=== PATIENT | female | born 1990 | race Caucasian/White ===

== ENCOUNTER → 2017-06-13 11:52 | Outpatient (CLI) | payer OTHER, SELFPAY ==
[2017-06-15 06:29] LABS: FSH 3.2 mIU/mL (.); LH 4.5 mIU/mL (.)
== END ==
PROVIDERS: Family Provider Nurse Practitioner Obstetrics & Gynecology; PCP Nurse Practitioner Obstetrics & Gynecology; Visit Provider Nurse Practitioner Obstetrics & Gynecology
DX: Z12.31 Encounter for screening mammogram for malignant neoplasm of breast (principal)
CPT/HCPCS: 36415; 83001; 83002; 84146; 84443

== ENCOUNTER 2017-07-10 18:10 | Emergency (ER) | payer BC, SELFPAY ==
[2017-07-10 18:34] VITALS: BP 116/73; PULSE 94; RESP 20; TEMP 36.9; O2SAT 98; BMI 29.6
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
[2017-07-10 19:51] LABS: UTC Pregnancy Test, Urine Negative (Negative)
[2017-07-10 20:10] LABS: UTC Pregnancy Test, Urine Negative (Negative)
[2017-07-10 20:40] VITALS: BP 110/85; PULSE 85; RESP 18; TEMP 36.8; O2SAT 100
== END 2017-07-10 20:32 | disposition home or self-care (01) ==
PROVIDERS: Emergency Provider Nurse Practitioner Family; Family Provider Nurse Practitioner Obstetrics & Gynecology
DX: K08.89 Other specified disorders of teeth and supporting structures (principal); R11.0 Nausea; N92.6 Irregular menstruation, unspecified
CPT/HCPCS: 81025; 99201

== ENCOUNTER → 2018-05-20 11:30 | Outpatient (CLI) | payer BC, MEDICAID, SELFPAY ==
--- NOTE | 2018-05-20 11:36 | US_ITS ---
US OB transvaginal HISTORY: ITS.REASON: OB T/V US -DATES before 12 wks ORDERING PHYSICIAN: Jamaal Olivas MD PATIENT AGE: 27 years COMPARISON: None FINDINGS: An intrauterine gestational sac is present with a pole with a crown-rump length of 1.65cm correlating to gestational age of 8w1d. heart tones are present with an FHR of 167 bpm's. Yolk sac is noted. The amnion and chorion have not yet fused. Adnexa: Small left corpus luteum cyst 1 cm. IMPRESSION: Live intrauterine gestation at 8 weeks 1 days as described above. Estimated due date by Ultrasound is 12/29/2018
[2018-05-20 12:38] LABS: Basophils % 0.3 % (0.1-2.0); Eosinophils # 0.3 K/mm3 (0.0-0.4); Eosinophils % 2.4 % (0.1-12.0); Hematocrit 40.9 % (37.0-47.0); Hemoglobin 13.3 g/dL (12.2-16.2); Lymphocytes # 2.1 K/mm3 (0.7-4.5); Lymphocytes % 18.9 % (10-50); Mean Corpuscular HGB Conc 32.5 g/dL (31.8-35.4); Mean Corpuscular Hemoglobin 31.2 pg (27.0-31.2); Mean Corpuscular Volume 95.9 fl (81-99); Mean Platelet Volume 7.7 fl (7.4-10.4); Monocytes # 0.3 K/mm3 (0.1-1.0); Neutrophils # 8.5 K/mm3 (1.8-7.8); Neutrophils % 75.4 % (37.0-80.0); Platelet Count 325 K/mm3 (142-424); Red Blood Count 4.27 M/mm3 (4.20-5.40); White Blood Count 11.2 K/mm3 (4.8-10.8)
[2018-05-21 07:21] LABS: HIV Screen 4th Generation wRfx Non Reactive (Non Reactive)
[2018-05-21 09:48] LABS: Hepatitis B Surface Antigen Negative (Negative); Hepatitis C Antibody <0.1 s/co ratio (0.0-0.9); Rapid Plasma Reagin Ab Titer Non Reactive (NonRea<1:1); Rubella Antibodies, IgG 1.31 index (Immune >0.99)
== END ==
PROVIDERS: PCP Family Medicine; Visit Provider Nurse Practitioner Obstetrics & Gynecology
DX: O26.841 Uterine size-date discrepancy, first trimester (principal); Z34.90 Encounter for supervision of normal pregnancy, unspecified, unspecified trimester
CPT/HCPCS: 36415; 76817; 85025; 86592; 86703; 86762; 86850; 87340; 87380; G0432

== ENCOUNTER → 2018-08-12 12:38 | Outpatient (CLI) | payer BC, MEDICAID, SELFPAY ==
--- NOTE | 2018-08-12 12:41 | US_ITS ---
US OB /maternal detail: INDICATION: ITS.REASON: US OB Complete ORDERING PHYSICIAN: Jamaal Olivas MD PATIENT AGE: 28 years TECHNIQUE: ultrasound transabdominal scanning. COMPARISON: No previous relevant studies. FINDINGS: Single viable intrauterine gestation. Cephalic position. Placenta: Posterior placenta grade 1. There is average amount fluid. The cervix appears satisfactory. Closed and measuring 3 cm in length. Complete survey performed and was unremarkable on the submitted images as in PACS. No discrete anomalies identified on survey imaging by technologist. Active fetus. Three-vessel cord with satisfactory umbilical cord insertion. 4- chamber heart noted. Survey of brain & ventricles unremarkable. Face and neck survey unremarkable. Diaphragm and chest views unremarkable. Abdomen: Both kidneys noted and unremarkable. Stomach noted and satisfactory. Spine: Survey of the spine satisfactory with no anomalies identified nor imaged. Both arms and legs noted. Amniotic Fluid: Adequate. Maternal adnexa: No significant findings. Measurements: Average ultrasound age 20 weeks 3 days. Gestational Age 20 weeks 1 day. Estimated due date by ultrasound age 912/27/2018. Estimated weight 366 grams. BPD = 20 weeks 2 days OFD = 20 weeks 3 days HC = 19 weeks 5 days AC = 20 weeks 5 days FL = 21 weeks 0 days Growth Percentile= 72% Heart Rate = 140 BPM Cerebellum = 20 weeks 0 days Humerus = 20 weeks 1 day HC/AC is 1.10. CI is 79%. FL/BPD is 74%. FL/AC is 23%. IMPRESSION: There is a single live fetus which is in cephalic presentation with average ultrasound age of 20 weeks and 3 days. No obvious anomalies. Please see above for details
== END ==
PROVIDERS: PCP Nurse Practitioner Obstetrics & Gynecology; Visit Provider Nurse Practitioner Obstetrics & Gynecology
DX: Z36.0 Encounter for antenatal screening for chromosomal anomalies (principal)
CPT/HCPCS: 76811

== ENCOUNTER 2018-09-18 16:16 | Outpatient (CLI) | payer BC, MEDICAID, SELFPAY ==
[2018-09-18 16:20] VITALS: BP 110/68; PULSE 83; RESP 18; TEMP 37.2; O2SAT 96; BMI 29.2
[2018-09-18 17:37] LABS: Eosinophils # 0.2 K/mm3 (0.0-0.4); Eosinophils % 1.6 % (0.1-12.0); Hematocrit 35.7 % (37.0-47.0); Hemoglobin 12.6 g/dL (12.2-16.2); Lymphocytes # 1.7 K/mm3 (0.7-4.5); Lymphocytes % 14.8 % (10-50); Mean Corpuscular HGB Conc 35.2 g/dL (31.8-35.4); Mean Corpuscular Hemoglobin 32.6 pg (27.0-31.2); Mean Corpuscular Volume 92.6 fl (81-99); Mean Platelet Volume 7.2 fl (7.4-10.4); Monocytes # 0.6 K/mm3 (0.1-1.0); Monocytes % 4.8 % (1.7-9.3); Neutrophils # 9.1 K/mm3 (1.8-7.8); Neutrophils % 78.8 % (37.0-80.0); Platelet Count 325 K/mm3 (142-424); Red Blood Count 3.86 M/mm3 (4.20-5.40); Red Cell Distribution Width 13.2 % (11.5-17.5); White Blood Count 11.5 K/mm3 (4.8-10.8)
[2018-09-18 17:44] LABS: Anion Gap 13.1 mEq/L (5-15); Blood Urea Nitrogen 11 mg/dL (7-18); Calcium 8.1 mg/dL (8.5-10.1); Carbon Dioxide 23 mmol/L (21.0-32.0); Chloride 106 mmol/L (98-107); Creatinine Clearance Estimated 156 mL/min (50-200); Creatinine,Serum 0.62 mg/dL (0.55-1.02); Estimated Glomerular Filt Rate 115 ml/min (>60); GFR (African American) 140 ML/MIN (>60); Glucose 99 mg/dL (74-106); Potassium 4.1 mmoL/L (3.5-5.1); Sodium 138 mmol/L (136-145)
[2018-09-18 17:58] LABS: Microscopic, Urine URINE MICROSCOPIC (MICROSCOPIC)
[2018-09-18 18:02] LABS: Appearance,Urine CLEAR (Clear); Bilirubin,Urine Negative (Negative); Blood, Urine Negative (Negative); Color,Urine YELLOW (Yellow); Glucose,Urine (UA) Negative (Negative); Ketones,Urine Negative (Negative); Leukocyte Esterase,Urine Negative (Negative); Nitrate,Urine Negative (Negative); Protein,Urine Negative (Negative); Specific Gravity, Urine >= 1.030 (1.005-1.030); Urobilinogen,Urine 0.2 EU/dl (0.2)
[2018-09-18 18:11] LABS: Amphetamine/Metha Screen,Urine Negative ng/mL (<1000); Barbiturates Screen,Urine Negative ng/mL (<200); Benzodiazepines Screen,Urine Negative ng/mL (<200); Cannabinoid Screen,Urine Negative ng/mL (<50); Cocaine Screen,Urine Negative ng/mL (<300); Methadone Screen,Urine Negative ng/mL (<300); Opiate Screen,Urine Negative ng/mL (<300); Phencyclidine Screen,Urine Negative ng/mL (<25)
[2018-09-18 18:47] LABS: Bacteria,Urine Trace /lpf; WBC,Urine Occasional #/hpf (0-3)
== END 2018-09-18 18:25 | disposition home or self-care (01) ==
LOC: OBOUT 16:17 → OB 16:18
PROVIDERS: Visit Provider Nurse Practitioner Obstetrics & Gynecology
DX: O26.892 Other specified pregnancy related conditions, second trimester (principal); Z3A.25 25 weeks gestation of pregnancy; R42 Dizziness and giddiness
CPT/HCPCS: 59025; 80048; 80305; 81001; 85025; 96360

== ENCOUNTER → 2018-09-30 10:02 | Outpatient (CLI) | payer BC, MEDICAID, SELFPAY ==
[2018-09-30 11:20] LABS: Glucose,Fasting 81 mg/dL (60-105)
[2018-09-30 14:03] LABS: Glucose 1 Hour 163 mg/dL (74-106)
== END ==
PROVIDERS: Visit Provider Nurse Practitioner Obstetrics & Gynecology
DX: Z34.90 Encounter for supervision of normal pregnancy, unspecified, unspecified trimester (principal)
CPT/HCPCS: 36415; 82951

== ENCOUNTER → 2018-10-10 09:33 | Outpatient (CLI) | payer BC, MEDICAID, SELFPAY ==
[2018-10-10 11:18] LABS: Glucose,Fasting 80 mg/dL (60-105)
[2018-10-10 11:31] LABS: Glucose 1 Hour 204 mg/dL (74-106)
[2018-10-10 13:34] LABS: Glucose 2 Hour 171 mg/dL (74-106)
[2018-10-10 14:11] LABS: Glucose 3 Hour 140 mg/dL (74-106)
== END ==
PROVIDERS: Visit Provider Nurse Practitioner Obstetrics & Gynecology
DX: Z34.90 Encounter for supervision of normal pregnancy, unspecified, unspecified trimester (principal)
CPT/HCPCS: 36415; 82951

== ENCOUNTER 2018-11-17 11:46 | Outpatient (CLI) | payer BC, MEDICAID, SELFPAY ==
[2018-11-17 12:01] VITALS: BMI 27.1
[2018-11-17 12:25] VITALS: BP 118/73; PULSE 78; RESP 20; TEMP 36.7; O2SAT 94; BMI 28.9
[2018-11-17 12:36] LABS: Microscopic, Urine URINE MICROSCOPIC (MICROSCOPIC)
[2018-11-17 12:39] LABS: Appearance,Urine CLOUDY (Clear); Bilirubin,Urine Negative (Negative); Blood, Urine Negative (Negative); Color,Urine YELLOW (Yellow); Glucose,Urine (UA) Negative (Negative); Ketones,Urine TRACE (Negative); Leukocyte Esterase,Urine 2+ (Negative); Nitrate,Urine Negative (Negative); PH,Urine 6.5 (5.0-8.5); Protein,Urine Negative (Negative); Urobilinogen,Urine 0.2 EU/dl (0.2)
[2018-11-17 12:46] LABS: Amphetamine/Metha Screen,Urine Negative ng/mL (<1000); Barbiturates Screen,Urine Negative ng/mL (<200); Benzodiazepines Screen,Urine Negative ng/mL (<200); Cannabinoid Screen,Urine Negative ng/mL (<50); Cocaine Screen,Urine Negative ng/mL (<300); Methadone Screen,Urine Negative ng/mL (<300); Opiate Screen,Urine Negative ng/mL (<300); Phencyclidine Screen,Urine Negative ng/mL (<25)
[2018-11-17 12:47] LABS: Bacteria,Urine 4+ /lpf
== END 2018-11-17 15:03 | disposition home or self-care (01) ==
LOC: OBOUT 11:48 → OB 11:50
PROVIDERS: PCP Nurse Practitioner Obstetrics & Gynecology; Visit Provider Obstetrics & Gynecology
DX: O26.893 Other specified pregnancy related conditions, third trimester (principal); Z3A.34 34 weeks gestation of pregnancy; R10.9 Unspecified abdominal pain
CPT/HCPCS: 59025; 80305; 81001; 87086; 96360; 96372

== ENCOUNTER → 2018-11-25 18:10 | Outpatient (CLI) | payer BC, MEDICAID, SELFPAY | PROVIDERS: Visit Provider Nurse Practitioner Obstetrics & Gynecology | DX: Z34.90 Encounter for supervision of normal pregnancy, unspecified, unspecified trimester (principal); Z3A.35 35 weeks gestation of pregnancy | CPT/HCPCS: 86403 ==

== ENCOUNTER 2018-12-03 19:12 | Outpatient (CLI) | payer BC, MEDICAID, SELFPAY ==
[2018-12-03 20:01] VITALS: BP 125/71; PULSE 83; RESP 18; TEMP 36.8; O2SAT 98; BMI 28.1
== END 2018-12-03 21:59 | disposition home or self-care (01) ==
LOC: OBOUT 19:13 → OB 19:14
PROVIDERS: Visit Provider Nurse Practitioner Obstetrics & Gynecology
DX: O47.03 False labor before 37 completed weeks of gestation, third trimester (principal); Z3A.36 36 weeks gestation of pregnancy
CPT/HCPCS: 59025; 96360; 96372

== ENCOUNTER → 2018-12-06 10:29 | Outpatient (CLI) | payer BC, MEDICAID, SELFPAY ==
--- NOTE | 2018-12-06 10:31 | US_ITS ---
PROCEDURE: US OB BPP W/FET-MAT S/D CLINICAL INDICATION: US OB BPP Growth- SGA Small for gestational age COMPARISON: OBFEMAT US OB /maternal detail from 08/12/2018 FINDINGS: Single viable intrauterine gestation. Cephalic position. Placenta: Posterior and fundalplacenta grade 2. There is average amount fluid. The cervix appears satisfactory. Closed and measuring 3 cm in length. Measurements: Average ultrasound age 35.86 week. Gestational Age 35.86 week Estimated due date by ultrasound age 0901/04/2019. Estimated weight 2,743.8 ggrams. BPD = 35 weeks 6 days OFD = 35 weeks 6 days HC = 35 weeks 3 days AC = 35 weeks 2 days FL = 36 weeks 5 days Growth Percentile= 25.2 Percent% Heart Rate = 144 bpm HC/AC is 1.01 CI is 0.8 FL/BPD is 0.81 FL/AC is 0.23 Biophysical profile is 8 of 8. Umbilical artery evaluation shows a resistive index of 0.63 and and SD ratio 2.7 both within normal limits. Amniotic fluid volume index is normal at 16 cm. IMPRESSION: Live IUP in cephalic presentation with an average ultrasound age of 35 weeks and 6 days. All parameters correlate. Estimated weight is 2743 g which is 25th percentile. Placenta is posterior and grade 2. Biophysical profile 8 of 8. Unremarkable Doppler evaluation of the umbilical artery. NIA of 16 cm. Dictated by: Adria Pang MD 12/07/2018 06:44 Signed by: <Electronically signed by Adria Pang MD in OV> 12/07/2018 06:44
== END ==
PROVIDERS: Visit Provider Nurse Practitioner Obstetrics & Gynecology
DX: O36.5990 Maternal care for other known or suspected poor fetal growth, unspecified trimester, not applicable or unspecified (principal)
CPT/HCPCS: 76819

== ENCOUNTER 2018-12-24 02:51 | Inpatient (IN) ==
[2018-12-24 03:47] LABS: Basophils % 0.2 % (0.1-2.0); Eosinophils # 0.1 K/mm3 (0.0-0.4); Eosinophils % 1.2 % (0.1-12.0); Hematocrit 38.6 % (37.0-47.0); Hemoglobin 13.3 g/dL (12.2-16.2); Lymphocytes % 20.7 % (10-50); Mean Corpuscular HGB Conc 34.6 g/dL (31.8-35.4); Mean Corpuscular Volume 94.8 fl (81-99); Mean Platelet Volume 8.1 fl (7.4-10.4); Monocytes # 0.4 K/mm3 (0.1-1.0); Monocytes % 4.4 % (1.7-9.3); Neutrophils # 7.1 K/mm3 (1.8-7.8); Neutrophils % 73.5 % (37.0-80.0); Platelet Count 294 K/mm3 (142-424); Red Blood Count 4.07 M/mm3 (4.20-5.40); White Blood Count 9.7 K/mm3 (4.8-10.8)
[2018-12-24 03:59] LABS: Amphetamine/Metha Screen,Urine Negative ng/mL (<1000); Barbiturates Screen,Urine Negative ng/mL (<200); Benzodiazepines Screen,Urine Negative ng/mL (<200); Cannabinoid Screen,Urine Negative ng/mL (<50); Cocaine Screen,Urine Negative ng/mL (<300); Methadone Screen,Urine Negative ng/mL (<300); Opiate Screen,Urine Negative ng/mL (<300); Phencyclidine Screen,Urine Negative ng/mL (<25)
[2018-12-24 04:55] LABS: ABG Base Excess -4.6 mmol/L (-2.4-2.3); ABG HCO3 20.5 mmhg (22.0-26.0); ABG Oxygen Saturation 63 % (90-100); ABG PCO2 35.5 mmhg (35.0-45.0); ABG PH 7.38 mmol/L (7.35-7.45); ABG TCO2 21.6 mmhg (23-27)
--- NOTE | 2018-12-24 05:07 | Procedure Note ---
- Delivery Note Delivery Date:: 12/24/18 Delivery Time:: 04:34 (Precipitous delivery) Anesthesia Type: None Was labor medically induced?: No Gestational age (weeks): 39 delivered prior to 39 weeks?: No Gender: Female at 1 minute: 7 at 5 minutes: 8 Suction Catheter Type: Diandra AF:: Clear Delivery Procedure:: This 28-year-old 3, now para 2, Ab0 white female was admitted at 39-2/7 weeks in active labor at 8 cm of dilatation with a bulging bag of water. Her course was uneventful except for mild gestational diabetes (diet- controlled). Her Accu-Chek on admission was 83. She was having strong regular contractions. Amniotomy revealed clear fluid, and the patient went quickly to completion at 0430. There was a tight nuchal cord, which was clamped and cut and reduced, and the baby's nasal and oropharynx were bulb suctioned on the perineum. The cord pH was 7.38. The baby was handed to the arms of the attending RN, assigned Apgars of 7 at 1 minute and 85 minutes to this 5 pound 10 ounce, 18.5 inch female , born at 0434. The placenta delivered spontaneously, intact, at 0436, making the total time in labor 4 hours 6 minutes. The uterus was inspected and was felt to be clean, and was involuting well. Because no IV access was available, Methergine 0.2 mg was administered IM to aid in involution. The patient tolerated the procedure well, and was recovered in excellent condition. The sponge and needle counts correct. The estimated blood loss was 350 cc. The patient's blood type is B+. Her rubella titer is immune. She plans to bottlefeed. Placental Delivery Description: Spontaneous
[2018-12-24 10:25] LABS: Hematocrit 39.2 % (37.0-47.0); Hemoglobin 13.1 g/dL (12.2-16.2)
--- NOTE | 2018-12-25 08:56 | Progress Note ---
Internal Medicine - PN: Subj *Date: 12/25/18 *Time: 08:54 Interval history: She continues to do well. She is eating and drinking and ambulating. She is bottlefeeding. Her lochia is normal. Exam Vital signs and Labs for Last 24 Hours: Temp Pulse Resp BP Pulse Ox 98.3 F 62 18 103/59 L 98 12/25/18 07:56 12/25/18 07:56 12/25/18 07:56 12/25/18 07:56 12/25/18 07:56 Laboratory Results - last 24 hr 12/24/18 10:00: Hgb 13.1, Hct 39.2 I & O for Last 24 hours: Intake & Output 12/22/18 12/23/18 12/24/18 12/25/18 11:59 11:59 11:59 11:59 Weight 160 lb - Constitutional no acute distress Assessment and Plan (1) Normal delivery at term Current visit: Yes Status: Acute Category: Medical Code(s): O80 - Encounter for full-term uncomplicated delivery (2) Gestational diabetes Current visit: No Status: Acute Qualifiers: Category: Medical Code(s): O24.419 - Gestational diabetes mellitus in , unspecified control - Assessment and plan all Dx Assessment and Plan for all problems:: She continues to do well. We will plan to send her home tomorrow.
[2018-12-26 04:34] VITALS: BP 108/62
--- NOTE | 2018-12-26 08:20 | Discharge Summary ---
General - General Admission date:: 12/24/18 Discharge date: 12/26/18 HPI HPI: She is a 28-year-old 3 para 2 who came in in active labor and was found to be 8 cm dilated when she arrived. Hospital Course Hospital Course: She progressed under labor epidural to full dilation and delivered spontaneously a liveborn female child at 4:34 AM on the morning of December 24, 2018. Baby weighed 5 pounds 10 ounces and was 18-1/2 inches long. She had Apgars of 7 at 1 minute and 8 at 5 minutes. There were no perineal or vaginal lacerations. She has B+ blood, she is rubella immune and was group A streptococcus negative. She is bottlefeeding. Her storage solutions architect is Dr. Lynch. She is discharged home to follow-up with me in approximately 2 weeks time. She will continue with her vitamins and iron. She is just taking [id number] analgesics. She was given the usual instructions with respect to limiting her activity, driving and sexual activity. Rhogam Administration: Not Indicated Objective Vital signs: Temp Pulse Resp BP Pulse Ox 98.2 F 56 L 16 108/62 L 97 12/26/18 04:07 12/26/18 04:07 12/26/18 04:07 12/26/18 04:07 12/26/18 04:07 no acute distress DS: Diagnosis - Discharge Diagnosis (1) Normal delivery at term Status: Acute (2) Gestational diabetes Status: Acute Discharge Plan - Patient Discharge Instructions ACTIVITY: No heavy lifting DIET: continue same diet Patient Instructions: DI for Labor and Delivery, Vaginal - Follow up Plan Disposition: Home, Self-Shelter Medications: Home Medications Medication Instructions Recorded Confirmed Type Ferrous Sulfate 325 mg PO DAILY 11/17/18 12/24/18 History Vit Calc,Iron,Folic [Kpn] 1 tab PO DAILY 11/17/18 12/24/18 History raNITIdine HCl [Ranitidine HCl] 150 mg PO BID 11/17/18 12/24/18 History Prescriptions/Medication Reconciliation: Continued Ferrous Sulfate 325 mg PO DAILY raNITIdine HCl [Ranitidine HCl] 150 mg PO BID Vit Calc,Iron,Folic [Kpn] 1 tab PO DAILY - Problem Reconciliation Problems Reviewed?: Yes
== END 2018-12-26 09:20 | disposition home or self-care (01) | DRG 807 ==
LOC: OB 02:51
PROVIDERS: ADMIT Nurse Practitioner Obstetrics & Gynecology; ATTEND Nurse Practitioner Obstetrics & Gynecology

== ENCOUNTER 2021-01-24 12:26 | Emergency (ER) | payer SELFPAY ==
[2021-01-24 12:35] VITALS: BP 117/57; PULSE 69; RESP 18; TEMP 36.7; O2SAT 98; BMI 31.1
[2021-01-24 12:56] LABS: Adenovirus,PCR Not Detected (NotDetected); Bordetella Pertussis Not Detected (NotDetected); Chlamydophila Pneumoniae, PCR Not Detected (NotDetected); Coronavirus 19, PCR Not Detected (NotDetected); Coronavirus 229E Not Detected (NotDetected); Coronavirus NL63 Not Detected (NotDetected); Coronavirus OC43 Not Detected (NotDetected); Coronovirus HKU1,PCR Not Detected (NotDetected); Human Metapneumovirus Not Detected (NotDetected); Influenza A, PCR Not Detected (NotDetected); Influenza AH1, 2009 Not Detected (NotDetected); Influenza AH1, PCR Not Detected (NotDetected); Influenza AH3,PCR Not Detected (NotDetected); Influenza B, PCR Not Detected (NotDetected); Mycoplasma Pneumoniae, PCR Not Detected (NotDetected); Parainfluenza 1, PCR Not Detected (NotDetected); Parainfluenza 2, PCR Not Detected (NotDetected); Parainfluenza 3, PCR Not Detected (NotDetected); Parainfluenza 4, PCR Not Detected (NotDetected); Rhinovirus/Enterovirus Not Detected (NotDetected)
[2021-01-24 12:56] LABS: UTC Strep Screen (Rapid) Negative (Negative)
--- NOTE | 2021-01-24 13:17 | HMH.EDUTC ---
[facility] [place] Clinical Impression: Viral syndrome Disposition: Home, Self-Care Condition on Discharge: Good Instructions: DI for Viral Syndrome Additional Instructions: Drink plenty of fluids. Take tylenol or ibuprofen for pain or fever. Take the medications as directed. Follow up with your regular doctor. GO TO THE ER FOR ANY WORSENING SYMPTOMS Quarantine until you know the results of your covid-19 test. If it is positive, the health department should call you and give you further instructions about your length of Quarantine and other things. Notify your school or workplace of your results and follow their instructions regarding return to work/school. The cough medication (promethazine dm) will make you drowsy, so don't drive or operate heavy machinery after taking it. Prescriptions: Brompheniramine/Pseudoephed/Dm [Bromfed Dm Cough Syrup] 5 ml PO Q6HP PRN #240 ml PRN Reason: Cough Transmission Status: Received by [id number] Benzonatate [Tessalon Perle 100mg Cap] 100 mg PO TIDP PRN #30 cap PRN Reason: Cough Transmission Status: Received by [id number] Azithromycin [Z-Kavon 250mg Tab*] 250 mg PO UD DOSE PK #6 tab Transmission Status: Received by [id number] Referrals: Gavin Lynch MD [Primary Care Provider] - Forms: Work/School Release Time of Disposition: 13:30 Medical Decision Making - Medical Records Medical records reviewed: No: I reviewed the patient's medical records. - Jas Inquiry Pt receiving controlled substance: No Vital Signs: 01/24/21 12:35 01/24/21 13:31 Temperature 98.1 F 98.1 F Temperature Source Oral Pulse Rate 69 Pulse Rate [Right Brachial] 69 Respiratory Rate 18 18 Blood Pressure 117/57 L Blood Pressure [Right Arm] 117/57 L Blood Pressure Mean [Right Arm] 77 Blood Pressure Source [Right Arm] Automatic Cuff Blood Pressure Position [Right Arm] Sitting 02 Sat by Pulse Oximetry 98 Oxygen Delivery Method Room Air - Lab Data Lab results reviewed: Yes: I reviewed the patient's lab results. Lab Results 01/24/21 12:45: Chlamy pneumoniae PCR Not detected, Adenovirus (PCR) Not detected, B. pertussis DNA (PCR) Not detected, Coronavirus OC43 (PCR) Not detected, Coronavirus HKU1 (PCR) Not detected, Coronavirus 229E (PCR) Not detected, SARS-CoV-2 (PCR) Not detected, Coronavirus NL63 (PCR) Not detected, Human Metapneumovir PCR Not detected, Influenza A (H1) PCR Not detected, Influ A (H1N1/09) PCR Not detected, Influenza A (H3) PCR Not detected, Influenza Type A (PCR) Not detected, Influenza Type B (PCR) Not detected, M. pneumoniae (PCR) Not detected, Parainfluenza 1 (PCR) Not detected, Parainfluenza 2 (PCR) Not detected, Parainfluenza 3 (PCR) Not detected, Parainfluenza 4 (PCR) Not detected, RSV (PCR) Detected A, Entero/Rhino (PCR) Not detected 01/24/21 12:50: Strep Scn Rapid Clinic Negative Orders (Tests/Meds): ORDERS Category Date Time Status Strep Screen Confirmation Stat Micro 01/24/21 12:50 Received [facility] [place] - General Stated complaint: sore throat, cough, runny nose, congestion Time Seen by Provider: 01/24/21 13:24 Mode of Arrival: Ambulatory Source of Information: Patient Limitations: No Limitations Description of Symptoms (Recalled from Triage Doc. by RN): PATIENT C/O COUGH, RUNNY NOSE AND SORE THROAT SINCE SUNDAY. SHE REPORTS HER AND CHILDREN HAVE HAD RSV HEENT Symptoms (Recalled from RN notes): Yes Resp Symptoms (Recalled from RN notes): Yes Skin Symptoms (Recalled from RN notes): No MS Symptoms (Recalled from RN notes): No Functional Status (Recalled from RN notes): WNL - History of Present Illness Provider Complaint: She states that she has been having scratchy sore throat, chilling, low grade fever, coughing and body aches for the past 2 days. She works at [employer]. She was tested for covid-19 yesterday and it was negative. She has not been vaccinated against covid-19. Sever
[2021-01-24 13:31] VITALS: BP 117/57; PULSE 69; RESP 18; TEMP 36.7; O2SAT 98
[2021-01-24 15:17] LABS: Respiratory Syncytial Virus Detected (NotDetected)
== END 2021-01-24 13:36 | disposition home or self-care (01) ==
PROVIDERS: Emergency Provider Nurse Practitioner Family; PCP Family Medicine
DX: B34.9 Viral infection, unspecified (principal); B97.4 Respiratory syncytial virus as the cause of diseases classified elsewhere
CPT/HCPCS: 87581; 87632; 87798; 87880; 99203; C9803; G0463; U0003; U0005

== ENCOUNTER 2021-05-07 13:56 | Emergency (ER) | payer OTHER, SELFPAY ==
--- NOTE | 2021-05-07 15:26 | XR_ITS ---
PROCEDURE INFORMATION: Exam: XR Right Wrist Exam date and time: 05/07/2021 3:26 PM Age: 30 years old Clinical indication: Pain; Wrist; Right; Additional info: Fall TECHNIQUE: Imaging protocol: XR Right wrist. Views: 3 or more views. COMPARISON: No relevant prior studies available. FINDINGS: Bones/joints: There is no evidence of acute fracture. There is no evidence of joint malalignment or dislocation. Soft tissues: No focal soft tissue swelling. IMPRESSION: 1. No evidence of acute fracture. 2. No evidence of acute dislocation.
[2021-05-07 16:27] VITALS: BP 135/85; PULSE 64; RESP 18; TEMP 36.8; O2SAT 100; BMI 33.0
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
[2021-05-07 17:04] VITALS: BP 135/85; PULSE 64; RESP 18; TEMP 36.8
== END 2021-05-07 17:05 | disposition home or self-care (01) ==
PROVIDERS: Emergency Provider Nurse Practitioner Family
DX: S63.501A Unspecified sprain of right wrist, initial encounter (principal); X58.XXXA Exposure to other specified factors, initial encounter
CPT/HCPCS: 29125; 73110; 99202; G0463

== ENCOUNTER 2021-06-27 06:35 | Emergency (ER) | payer SELFPAY ==
[2021-06-27 06:36] VITALS: BP 127/78; PULSE 84; RESP 18; TEMP 36.7; O2SAT 99; BMI 33.0
[2021-06-27 06:45] VITALS: BMI 33.0
[2021-06-27 07:13] LABS: Alanine Aminotransferase 18 U/L (12-78); Albumin Level 4.6 g/dl (3.5-5.0); Albumin/Globulin Ratio 1.6 (1.1-1.8); Alkaline Phosphatase 64 U/L (38-126); Anion Gap 11.9 mEq/L (5-15); Aspartate Amino Transferase 22 U/L (14-36); Bilirubin,Total 0.6 mg/dl (0.2-1.3); Blood Urea Nitrogen 13 mg/dl (7-17); Calcium 8.7 mg/dl (8.4-10.2); Carbon Dioxide 25 mmol/L (22.0-30.0); Chloride 103 mmol/L (98-107); Creatinine Clearance Estimated 172 mL/min (50-200); Estimated Glomerular Filt Rate 117 ml/min (>60); GFR (African American) 142 ML/MIN (>60); Globulin 2.9 g/dL (1.3-3.2); Glucose 100 mg/dl (74-100); Potassium 3.9 mmoL/L (3.5-5.1); Sodium 136 mmol/L (136-145); Total Protein,Serum 7.5 g/dl (6.3-8.2)
[2021-06-27 07:16] LABS: Basophils # 0.1 K/mm3 (0-0.2); Basophils % 0.8 % (0.1-2.0); Eosinophils # 0.2 K/mm3 (0.0-0.4); Hematocrit 41.3 % (37.0-47.0); Hemoglobin 13.6 g/dL (12.2-16.2); Lymphocytes # 1.3 K/mm3 (0.7-4.5); Lymphocytes % 12.9 % (10-50); Mean Corpuscular HGB Conc 32.8 g/dL (31.8-35.4); Mean Corpuscular Hemoglobin 31.2 pg (27.0-31.2); Mean Corpuscular Volume 94.9 fl (81-99); Mean Platelet Volume 7.8 fl (7.4-10.4); Monocytes # 0.4 K/mm3 (0.1-1.0); Monocytes % 4.4 % (1.7-9.3); Neutrophils # 7.9 K/mm3 (1.8-7.8); Neutrophils % 79.9 % (37.0-80.0); Platelet Count 298 K/mm3 (142-424); Red Blood Count 4.35 M/mm3 (4.20-5.40); Red Cell Distribution Width 13.1 % (11.5-17.5); White Blood Count 9.8 K/mm3 (4.8-10.8)
[2021-06-27 07:18] LABS: C-Reactive Protein 18.9 mg/L (0-4)
--- NOTE | 2021-06-27 07:19 | HMH.EDDENT ---
ED Disposition Clinical Impression: Dental abscess, Dental caries Disposition: Home, Self-Care Condition on Discharge: Good Instructions: DI for Dental Pain Additional Instructions: use meds and see pcp Prescriptions: cephALEXin [cephALEXin 500mg capsule*] 500 mg PO TID #30 cap Transmission Status: Pending to [id number] Referrals: Gavin Lynch MD [Primary Care Provider] - - Critical Care Critical Care Time: No Attestation: On 06/27/21, the high probability of a clinically significant, sudden or life threatening deterioration of the following system(s) required my full and direct attention, intervention and personal management. The time I documented below is in addition to time spent performing reported procedures but includes the following listed in this critical care notation. Medical Decision Making - Medical Records Medical records reviewed: Yes: I reviewed the patient's medical records. - Jas Inquiry Pt receiving controlled substance: No Vital Signs: 06/27/21 06:36 Temperature 98.1 F Temperature Source Oral Pulse Rate [Right] 84 Respiratory Rate 18 Blood Pressure [Right Arm] 127/78 Blood Pressure Mean [Right Arm] 94 02 Sat by Pulse Oximetry 99 - Lab Data Lab Results 06/27/21 06:53: Sodium 136, Potassium 3.9, Chloride 103, Carbon Dioxide 25, Anion Gap 11.9, BUN 13, Creatinine 0.60, Estimated Creat Clear 172, Estimated GFR 117, Est GFR ( Amer) 142, Glucose 100, Calcium 8.7, Total Bilirubin 0.6, AST 22, ALT 18, Alkaline Phosphatase 64, Total Protein 7.5, Albumin 4.6, Globulin 2.9, Albumin/Globulin Ratio 1.6 Result diagrams: 06/27/21 06:53 Orders (Tests/Meds): ED MEDICATIONS Generic Name Dose Route Start Last Admin Trade Name Freq PRN Reason Stop Dose Admin Sodium Chloride 1,000 mls @ 999 mls/hr 06/27/21 07:00 Sod Chlor 0.9% 1000ml Bag IV 06/27/21 08:00 .Q1H1M JANETH Discontinued Medications Generic Name Dose Route Start Last Admin Trade Name Freq PRN Reason Stop Dose Admin Ketorolac Tromethamine 30 mg 06/27/21 06:50 Ketorolac 30mg/Ml Vial IV 06/27/21 06:51 ONCE ONE Methylprednisolone Sodium Succinate 125 mg 06/27/21 06:50 Methylprednisolone Sod Succ 125mg Vial IV 06/27/21 06:51 ONCE ONE ORDERS Category Date Time Status CT facial bones w con Stat Cat Scan 06/27/21 06:[address] soft tissue neck w con Stat Cat Scan 06/27/21 06:48 Ordered C-Reactive Protein Stat Lab 06/27/21 06:53 Results Complete Blood Count Auto Diff Stat Lab 06/27/21 06:53 Received Comprehensive Metabolic Panel Stat Lab 06/27/21 06:53 Results Erythrocyte Sedimentation Rate Stat Lab 06/27/21 06:53 Received Lactic Acid Stat Lab 06/27/21 06:53 Received Procalcitonin Stat Lab 06/27/21 06:53 Results Blood Culture Stat Micro 06/27/21 06:53 Received Medical Decision Narrative: acute dental infection and will ask pt to see dentist Dental HPI - General Chief complaint: Dental/Oral Stated complaint: Swollen Jaw Right Side Possible Abcess Time Seen by Provider: 06/27/21 07:19 Mode of Arrival: Ambulatory Source of Information: Patient, Medical Record Limitations: No Limitations Description of Symptoms (Recalled from ER Triage Doc. by RN): pt c/o rt bottom tooth pain that started yesterday. last night she states swelling began. - Related Data Previous Rx's Medication Instructions Recorded Azithromycin [Z-Kavon 250mg Tab*] 250 mg PO UD DOSE PK #6 tab 01/24/21 Benzonatate [Tessalon Perle 100mg 100 mg PO TIDP PRN #30 cap 01/24/21 Cap] Brompheniramine/Pseudoephed/Dm 5 ml PO Q6HP PRN #240 ml 01/24/21 [Bromfed Dm Cough Syrup] Ibuprofen [Ibuprofen 600mg 600 mg PO Q6HP PRN #30 tab 05/07/21 Tablet] cephALEXin [cephALEXin 500mg 500 mg PO TID #30 cap 06/27/21 capsule*] Allergies Allergy/AdvReac Type Severity Reaction Status Date / Time risperidone [From RISPERDAL] Allergy Mild -- Verified 02/28/19 10:00
[2021-06-27 07:23] LABS: Lactic Acid 0.7 mmol/L (0.7-2.1)
[2021-06-27 07:32] LABS: Procalcitonin 0.205 ng/mL (0.0-2.0)
[2021-06-27 07:47] VITALS: BP 125/79; PULSE 68; RESP 20; TEMP 36.7; O2SAT 100
[2021-06-27 07:59] LABS: Erythrocyte Sedimentation Rate 17 mm/hr (0-20)
== END 2021-06-27 07:54 | disposition home or self-care (01) ==
PROVIDERS: Emergency Provider Emergency Medicine; PCP Family Medicine
DX: M27.2 Inflammatory conditions of jaws (principal); K02.9 Dental caries, unspecified; K08.89 Other specified disorders of teeth and supporting structures; Z79.1 Long term (current) use of non-steroidal anti-inflammatories (NSAID); Z88.8 Allergy status to other drugs, medicaments and biological substances
CPT/HCPCS: 80053; 83605; 84145; 85025; 85651; 86140; 87040; 96361; 96365; 96374; 96375; 99284; J0696

== ENCOUNTER 2022-06-17 09:21 | Emergency (ER) | payer SELFPAY ==
[2022-06-17 09:40] VITALS: BP 126/80; PULSE 97; RESP 14; TEMP 37.1; O2SAT 100; BMI 33.0
--- NOTE | 2022-06-17 10:06 | EXP.UTC ---
Discharge Plan Disposition Patient Disposition: Home, Self-Care Condition: Good Prescriptions Prescriptions: New ibuprofen 800 mg tablet 800 mg PO TID PRN (Reason: pain) Qty: 30 0RF amoxicillin 875 mg tablet 875 mg PO BID 10 Days Qty: 20 0RF No Action ibuprofen 600 MG tablet 600 mg PO Q6HP PRN (Reason: Mild Pain) Qty: 30 0RF Referrals Follow up/Referrals: Provider,Referral, MD [Primary Care Provider] - See instructions Clinical Impressions Clinical Impression: Dental abscess Discharge ED Provider: Nery Shkula [facility] [place] HPI General Stated complaint: dental pain Mode of Arrival: Ambulatory Source of Information: Patient Limitations: No Limitations Time Seen by Provider: 06/17/22 10:02 Description of Symptoms (Recalled from Triage Doc. by RN): tooth abcess going on for about a wk HEENT Symptoms (Recalled from RN notes): Yes Resp Symptoms (Recalled from RN notes): No Skin Symptoms (Recalled from RN notes): No MS Symptoms (Recalled from RN notes): No Functional Status (Recalled from RN notes): n/a History of Present Illness Provider Complaint: Pt states that she has had an abscess for about 2 weeks. She states she has been taking Tylenol, but does not have insurance and has not been to a dentist. Related Data Previous Rx's Medication Instructions Recorded ibuprofen 600 mg tablet 600 mg PO Q6HP PRN Mild Pain #30 05/07/ tabs amoxicillin 875 mg tablet 875 mg PO BID 10 days #20 tabs 06/17/22 ibuprofen 800 mg tablet 800 mg PO TID PRN pain #30 tabs 06/17/22 Allergies Allergy/AdvReac Type Severity Reaction Status Date / Time risperidone [From RISPERDAL] Allergy Mild -- Verified 06/17/22 10:00 Worker's Comp Is this a Worker's Comp case?: No [facility] Disclaimer: The information contained in this section may have been updated after the patient was seen, as this information can be updated by other users. Social History Smoking Status: Never smoker second hand exposure: No alcohol intake: never substance use type: denies use current occupational status: unemployed Travel in the last 8 weeks: None household members: spouse housing: house current occupational exposures/hazards: No caffeine: No ROS Obtained: Yes All systems reviewed & no additional complaints except as documented Constitutional Constitutional: Reports system reviewed and no additional complaints, except as documented Eyes Eyes: Reports system reviewed and no additional complaints, except as documented ENT Ears, Nose, Mouth, and Throat: Reports as per HPI and Reports dental pain Cardiovascular Cardiovascular: Reports system reviewed and no additional complaints, except as documented Respiratory Respiratory: Reports system reviewed and no additional complaints, except as documented Genitourinary Female Genitourinary: Reports system reviewed and no additional complaints, except as documented Musculoskeletal Musculoskeletal: Reports system reviewed and no additional complaints, except as documented Integumentary/Breasts Skin/Breast: Reports system reviewed and no additional complaints, except as documented Neurologic Neurologic: Reports system reviewed and no additional complaints, except as documented Endocrine Endocrine: Reports system reviewed and no additional complaints, except as documented Hematologic/Lymphatic Henatologic/Lymphatic: Reports system reviewed and no additional complaints, except as documented Allergic/Immunologic Allergic/Immunologic: Reports system reviewed and no additional complaints, except as documented Physical Exam General General appearance: alert and in no apparent distress Head Head exam: atraumatic and normocephalic Eye Eye exam: Present normal appearance ENT ENT exam: Present normal exam Expanded ENT Exam Teeth exam: Present fractured tooth # and dental tenderness # Comment: Multiple caries and broken teeth noted
[2022-06-17 10:16] VITALS: BP 126/80; PULSE 97; RESP 14; TEMP 37.1; O2SAT 100
== END 2022-06-17 10:15 | disposition home or self-care (01) ==
PROVIDERS: Emergency Provider Nurse Practitioner Family
DX: K04.7 Periapical abscess without sinus (principal)
CPT/HCPCS: 99212; 99213; G0463

== ENCOUNTER 2023-03-25 10:56 | Emergency (ER) | payer OTHER, SELFPAY ==
[2023-03-25 11:40] VITALS: BP 122/80; PULSE 78; RESP 18; TEMP 36.8; O2SAT 99; BMI 33.0
--- NOTE | 2023-03-25 11:49 | EXP.UTC ---
Discharge Plan Disposition Patient Disposition: Home, Self-Care Condition: Good Prescriptions Prescriptions: New azithromycin [Zithromax] 250 mg tablet 250 mg PO UD DOSE PK Qty: 6 0RF Rx Instructions: Take two (2) tablets today, then one (1) tablet days #2 thru #5 methylprednisolone 4 mg Tablets,Dose Pack 4 mg PO DIRECTED Qty: 21 0RF sprjznmzcfcdjkf-zydgcwmjf-IV [Bromfed DM] 2-30-10 mg/5 mL Syrup 5 ml PO Q6H PRN (Reason: Cough) Qty: 240 0RF Referrals Follow up/Referrals: Namrata Lopez MD [Primary Care Provider] - See instructions Activity Restrictions/Add. Instructions Additional Instructions/Restrictions: Drink plenty of fluids. Take tylenol or ibuprofen for pain or fever. Take the medications as directed. Follow up with your regular doctor. GO TO THE ER FOR ANY WORSENING SYMPTOMS Clinical Impressions Clinical Impression: Pharyngitis Instructions Patient Instructions: Sore Throat, DI for Pharyngitis/Tonsillopharyngitis -- Adult Discharge ED Provider: Tu Walsh [facility] General Stated complaint: sore throat, loosing voice Time Seen by Provider: 03/25/23 11:49 History of Present Illness Provider Complaint: She states that for the past 3 days she has had worsening sore throat, malaise and chills. She also has sinus congestion. She denies any fever. Related Data Previous Rx's Medication Instructions Recorded azithromycin 250 mg tablet 250 mg PO UD DOSE PK #6 tabs 03/25/23 (Zithromax) fyehzyaphyhqbtn-tgcakmlcmhclmdk-EW 5 ml PO Q6H PRN Cough #240 mL 03/25/23 2 mg-30 mg-10 mg/5 mL oral syrup (Bromfed DM) methylprednisolone 4 mg tablets in 4 mg PO DIRECTED #21 tabs 03/25/23 a dose pack Allergies Allergy/AdvReac Type Severity Reaction Status Date / Time risperidone [From RISPERDAL] Allergy Mild -- Verified 03/25/23 12:05 [facility] Disclaimer: The information contained in this section may have been updated after the patient was seen, as this information can be updated by other users. Social History Smoking Status: Never smoker second hand exposure: No alcohol intake: never substance use type: denies use current occupational status: unemployed Travel in the last 8 weeks: None household members: spouse housing: house current occupational exposures/hazards: No caffeine: No ROS Obtained: Yes All systems reviewed & no additional complaints except as documented Constitutional Constitutional: Reports chills and Reports fever(s) Eyes Eyes: Denies eye discharge ENT Ears, Nose, Mouth, and Throat: Reports as per HPI Cardiovascular Cardiovascular: Denies chest pain Respiratory Respiratory: Denies chest congestion and Reports cough Gastrointestinal Gastrointestingal: Reports nausea; Denies abdominal pain, constipation, cramping, diarrhea or vomiting Musculoskeletal Musculoskeletal: Denies arthralgias Integumentary/Breasts Skin/Breast: Denies rash Neurologic Neurologic: Denies paresthesias Physical Exam General General appearance: alert and in no apparent distress Head Head exam: atraumatic, normocephalic and normal inspection Eye Eye exam: Present normal appearance, PERRL and EOMI ENT ENT exam: Present mucous membranes moist and normal external ear exam Expanded ENT Exam TM/Canal exam: Bilateral TM: erythema and bulging Nose exam: Absent sinus tenderness Mouth exam: Present normal external inspection; Absent drooling Teeth exam: Present normal inspection Throat exam: Present tonsillar erythema, tonsillomegaly and tonsillar exudate Neck Neck exam: Present normal inspection, full ROM and trachea midline; Absent tenderness, meningismus or lymphadenopathy Chest Chest inspection: Present normal inspection and symmetric chest wall rise; Absent tenderness Respiratory Respiratory exam: Present normal lung sounds bilaterally; Absent respiratory distress, wheezes or stridor Cardiovascu
[2023-03-25 12:09] LABS: UTC Strep Screen (Rapid) Negative (Negative)
[2023-03-25 12:26] VITALS: BP 130/84; PULSE 60; RESP 18; TEMP 37.1; O2SAT 96
== END 2023-03-25 12:26 | disposition home or self-care (01) ==
PROVIDERS: Emergency Provider Nurse Practitioner Family; PCP Family Medicine
DX: J02.9 Acute pharyngitis, unspecified (principal); R09.81 Nasal congestion; R68.83 Chills (without fever); R53.81 Other malaise
CPT/HCPCS: 87880; 99212; 99214; G0463

== ENCOUNTER 2023-08-05 15:08 | Emergency (ER) | payer SELFPAY ==
[2023-08-05 15:16] VITALS: BP 116/78; PULSE 76; RESP 18; TEMP 36.8; O2SAT 96; BMI 33.0
--- NOTE | 2023-08-05 15:18 | ED_ITS ---
<Statement entered by Gurvinder Thomas MD - 08/05/23 17:24> I was consulted by the ANA, and we discussed the complexity of the problems being addressed. I approved the treatment and management plan for this patient's care in the emergency department, thus performing a substantive portion of the medical decision making. Gurvinder Thomas MD Discharge Plan Disposition Patient Disposition: Home, Self-Care Condition: Good Prescriptions Prescriptions: New oxycodone 5 mg tablet 5 mg PO Q8H PRN (Reason: pain (scale score 7-10)) Qty: 12 0RF No Action azithromycin [Zithromax] 250 mg tablet 250 mg PO UD DOSE PK Qty: 6 0RF Rx Instructions: Take two (2) tablets today, then one (1) tablet days #2 thru #5 methylprednisolone 4 mg Tablets,Dose Pack 4 mg PO DIRECTED Qty: 21 0RF [id number]-eplmjenyd-KL [Bromfed DM] 2-30-10 mg/5 mL Syrup 5 ml PO Q6H PRN (Reason: Cough) Qty: 240 0RF Referrals Follow up/Referrals: Namrata Lopez MD [Primary Care Provider] - See instructions Jayro Casey DO [Staff Physician] - See instructions Activity Restrictions/Add. Instructions Additional Instructions/Restrictions: Please keep your leg elevated. Total nonweightbearing. If you began having excruciating pain, loss of sensation or altered sensation, return to the emergency department immediately for evaluation or as needed. Clinical Impressions Clinical Impression: Tibia/fibula fracture Qualifiers: Encounter type: initial encounter Fracture type: closed Laterality: right Qualified Code(s): S82.201A - Unspecified fracture of shaft of right tibia, initial encounter for closed fracture Discharge ED Provider: Gurvinder Thomas General Adult HPI General Chief complaint: Extremity Injury, Lower Stated complaint: AO 08/05/23 1430 Injury right leg Time Seen by Provider: 08/05/23 15:16 History of Present Illness HPI narrative: Patient presents for right lower extremity injury. Patient was rollerskating and fell with her roller skate twisting away from her and patient falling. Patient was unable to bear weight after. Patient denies loss of consciousness or any other injury. Related Data Previous Rx's Medication Instructions Recorded azithromycin 250 mg tablet 250 mg PO UD DOSE PK #6 tabs 03/25/23 (Zithromax) taulufpngsipvjc-obqdkfcrnlbtztm-XH 5 ml PO Q6H PRN Cough #240 mL 03/25/23 2 mg-30 mg-10 mg/5 mL oral syrup (Bromfed DM) methylprednisolone 4 mg tablets in 4 mg PO DIRECTED #21 tabs 03/25/23 a dose pack oxycodone 5 mg tablet 5 mg PO Q8H PRN pain (scale score 08/05/23 7-10) #12 tabs Allergies Allergy/AdvReac Type Severity Reaction Status Date / Time risperidone [From RISPERDAL] Allergy Mild -- Verified 03/25/23 12:05 [facility] Disclaimer: The information contained in this section may have been updated after the patient was seen, as this information can be updated by other users. Social History Smoking Status: Never smoker second hand exposure: No alcohol intake: never substance use type: denies use current occupational status: unemployed Travel in the last 8 weeks: None household members: spouse housing: house current occupational exposures/hazards: No caffeine: No ROS Obtained: Yes Systems reviewed as appropriate & no additional complaints except as documented Physical Exam General General appearance: alert Respiratory Respiratory exam: Present normal lung sounds bilaterally; Absent respiratory distress Cardiovascular Cardiovascular exam: Present regular rate and normal rhythm Neurological Exam Neurological exam: Present alert and oriented X3 Other Other exam information: Patient arrives with right lower extremity and box splint. On taking down the splint patient does not have any obvious deformity visually or via palpation. Ankle appears to be stable however range of motion testing at the ankle is eliciting pain in the proximal right lower extremity. No obvious ecchymosis. Patient is neurovascularly intact distally. Medical Decision Making Medical Records Medical records reviewed: Yes I reviewed the patient's medical records. Jas Inquiry Pt receiving controlled substance: No Vital Signs: 08/05/23 15:16 Temperature 98.3 F Temperature Source Oral Pulse Rate [Right Radial] 76 Respiratory Rate 18 Blood Pressure [Right Arm] 116/78 Blood Pressure Mean [Right Arm] 90 02 Sat by Pulse Oximetry 96 Oxygen Delivery Method Room Air Orders (Tests/Meds): ED MEDICATIONS Discontinued Medications Generic Name Dose Route Start Last Admin Trade Name Freq PRN Reason Stop Dose Admin Acetaminophen 1,000 mg 08/05/23 15:20 08/05/23 16:00 Acetaminophen 500mg Tab PO 08/05/23 15:21 1,000 mg ONCE ONE Administration Ketorolac Tromethamine 30 mg 08/05/23 15:20 08/05/23 16:00 Ketorolac 30mg/Ml Vial IM 08/05/23 15:21 30 mg ONCE ONE Administration ORDERS Category Date Time Status Ankle XR -Right minimum 3 Views [XR ankle RT min 3V] Exams 08/05/23 15:20 Completed Stat Knee XR right 3 views [XR knee RT 3V] Stat Exams 08/05/23 15:20 Completed Tibia/fibula XR right 2 views [XR tibia fibula RT 2V] Exams 08/05/23 15:20 Completed Stat Medical Decision Narrative: In summary patient is a 33-year-old female who presents to the emergency department for evaluation of right lower extremity injury while rollerskating. Patient is hemodynamically stable upon arrival, afebrile. Physical exam is remarkable for pain on palpation and movement of the lower third of the right lower extremity excluding the ankle. Ankle exam appears to be stable. Patient is neurovascular intact distally. I do not see any evidence of ecchymosis currently. I see no edema currently.. Differential diagnosis includes fracture versus sprain of the right lower extremity, ankle, knee. Initial workup will be conducted with plain film x-rays. Initial interventions include Toradol and Tylenol. Initial workup reviewed by me and my informal interpretation of her plain film x-ray shows a comminuted distal third tibia-fibula fracture radiology read pending. I discussed patient management with Dr. Casey of orthopedics. Dr. Casey request a posterior splint along with a stirrup, nonweightbearing, crutches, will follow-up in clinic On Sunday. Upon repeat evaluation has had adequate pain reduction and continues to have a palpable DP and PT with no neurovascular compromise currently. Given this patient is appropriate for discharge home with follow-up with Dr. Csaey on Sunday. Prescription for narcotic pain medications given to the patient via electronic transmission. Instructions for signs and symptoms of compartment syndrome were explained to the patient who verbalized understanding and agreement. Critical Care Critical Care Time Critical Care Time: No
--- NOTE | 2023-08-05 15:20 | XR_ITS ---
PROCEDURE INFORMATION: Exam: XR Right Ankle Exam date and time: 08/05/2023 3:21 PM Age: 33 years old Clinical indication: Injury or trauma; Fall; Sprain or strain; Ankle; Right; Injury date: Today TECHNIQUE: Imaging protocol: Radiologic exam of the right ankle. Views: 3 or more views. COMPARISON: No relevant prior studies available. FINDINGS: Bones/joints: Spiral type nondisplaced fracture of the distal tibia diaphysis. Vertically oriented posterior malleolar fracture with slight articular margin incongruity. Essentially nondisplaced oblique fracture of the distal fibula. No other fracture or dislocation seen. Soft tissues: Normal. IMPRESSION: Fractures of the distal tibial diaphysis in the posterior malleolus and distal fibula.
--- NOTE | 2023-08-05 15:20 | XR_ITS ---
PROCEDURE INFORMATION: Exam: XR Right Knee Exam date and time: 08/05/2023 3:22 PM Age: 33 years old Clinical indication: Injury or trauma; Fall; Sprain or strain; Patella or knee; Right; Injury date: Today TECHNIQUE: Imaging protocol: Radiologic exam of the right knee. Views: 3 views. COMPARISON: CR XR TIBIA FIBULA RT 2V 08/05/2023 3:21 PM FINDINGS: Bones/joints: Normal. No fracture evident Soft tissues: Normal. IMPRESSION: No acute findings.
--- NOTE | 2023-08-05 15:20 | XR_ITS ---
PROCEDURE INFORMATION: Exam: XR Right Tibia and Fibula Exam date and time: 08/05/2023 3:21 PM Age: 33 years old Clinical indication: Injury or trauma; Fall; Swelling (edema); Lower leg; Right; Injury date: Today TECHNIQUE: Imaging protocol: Radiologic exam of the right tibia and fibula. Views: 2 views. COMPARISON: CR XR ANKLE RT MIN 3V 08/05/2023 3:21 PM FINDINGS: Bones/joints: A nondisplaced spiral type fracture involving the junction of the middle and distal 3rd of the tibia. An additional essentially nondisplaced vertically oriented posterior malleolar fracture with intra-articular extension and slight articular margin offset of the distal tibia. Nondisplaced oblique fracture of the distal fibula. Soft tissues: Normal. IMPRESSION: Fractures of the distal tibial diaphysis and the posterior malleolus and distal fibula.
[2023-08-05 16:00] VITALS: BP 121/92; PULSE 93; O2SAT 100
[2023-08-05] MEDS: ACETAMINOPHEN 500MG TAB 1000 MG PO (16:00)
[2023-08-05] MEDS: KETOROLAC 30MG/ML VIAL 30 MG IM (16:00)
[2023-08-05] MEDS: OXYCODONE 5MG IMMEDIATE RELEASE TABLET 5 MG PO (16:31)
[2023-08-05 16:43] VITALS: BP 142/104; PULSE 75; RESP 15; TEMP 36.7
== END 2023-08-05 16:44 | disposition home or self-care (01) ==
PROVIDERS: Emergency Provider Emergency Medicine; PCP Family Medicine
DX: V00.121A Fall from non-in-line roller-skates, initial encounter; S82.251A Displaced comminuted fracture of shaft of right tibia, initial encounter for closed fracture
CPT/HCPCS: 73562; 73590; 73610; 96372; 99284

== ENCOUNTER 2023-11-30 19:10 | Emergency (ER) | payer SELFPAY ==
--- NOTE | 2023-11-30 19:41 | EXP.UTC ---
Discharge Plan Disposition Patient Disposition: Home, Self-Care Condition: Good Prescriptions Prescriptions: New phenazopyridine [Pyridium] 200 mg tablet 200 mg PO Q8H 2 Days Qty: 6 0RF nitrofurantoin monohyd/m-cryst [Macrobid] 100 mg Capsule 100 mg PO BID Qty: 10 0RF Rx Instructions: must administer with a meal/food No Action azithromycin [Zithromax] 250 mg tablet 250 mg PO UD DOSE PK Qty: 6 0RF Rx Instructions: Take two (2) tablets today, then one (1) tablet days #2 thru #5 methylprednisolone 4 mg Tablets,Dose Pack 4 mg PO DIRECTED Qty: 21 0RF [id number] [Bromfed DM] 2-30-10 mg/5 mL Syrup 5 ml PO Q6H PRN (Reason: Cough) Qty: 240 0RF oxycodone 5 mg tablet 5 mg PO Q8H PRN (Reason: pain (scale score 7-10)) Qty: 12 0RF Referrals Follow up/Referrals: Namrata Lopez MD [Primary Care Provider] - See instructions Activity Restrictions/Add. Instructions Additional Instructions/Restrictions: Drink plenty of fluids. Take tylenol or ibuprofen for pain or fever. Take the medications as directed. Follow up with your regular doctor. GO TO THE ER FOR ANY WORSENING SYMPTOMS The pyridium will make your urine turn orange, this is an expected side effect. It will stain your clothes if it comes into contact with them. We will culture the urine. That will tell what bacteria is causing your infection and which antibiotics will treat it best. Sometimes the first antibiotic we prescribe turns out to not work against different bacteria. So, make sure you follow up within 3 days if you are not getting better. Clinical Impressions Clinical Impression: UTI (urinary tract infection) Stand Alone Forms Stand Alone Forms: Work/School Release Instructions Patient Instructions: Urinary Tract Infection, DI for Urinary Tract Infection (UTI), Phenazopyridine Print Language Print Language: Macedonian Discharge ED Provider: Tu Walsh [facility] [place] HPI General Stated complaint: stomach pain,right side pain waist line area Time Seen by Provider: 11/30/23 19:41 Related Data Previous Rx's ?Medication ?Instructions ?Recorded azithromycin 250 mg tablet 250 mg PO UD DOSE PK #6 tabs 03/25/23 (Zithromax) [id number]-bcmjiaqjmhynqji-FZ 5 ml PO Q6H PRN Cough #240 mL 03/25/23 2 mg-30 mg-10 mg/5 mL oral syrup (Bromfed DM) methylprednisolone 4 mg tablets in 4 mg PO DIRECTED #21 tabs 03/25/23 a dose pack oxycodone 5 mg tablet 5 mg PO Q8H PRN pain (scale score 08/05/23 7-10) #12 tabs nitrofurantoin 100 mg PO BID #10 caps 11/30/23 monohydrate/macrocrystals 100 mg capsule (Macrobid) phenazopyridine 200 mg tablet 200 mg PO Q8H 2 days #6 tabs 11/30/23 (Pyridium) Allergies Allergy/AdvReac Type Severity Reaction Status Date / Time risperidone [From RISPERDAL] Allergy Mild -- Verified 03/25/23 12:05 [facility] Disclaimer: The information contained in this section may have been updated after the patient was seen, as this information can be updated by other users. Social History Smoking Status: Never smoker second hand exposure: No alcohol intake: never substance use type: denies use current occupational status: unemployed Travel in the last 8 weeks: None household members: spouse housing: house current occupational exposures/hazards: No caffeine: No ROS Obtained: Yes All systems reviewed & no additional complaints except as documented Constitutional Constitutional: Reports system reviewed and no additional complaints, except as documented, Denies chills and Denies fever(s) Eyes Eyes: Denies eye discharge ENT Ears, Nose, Mouth, and Throat: Denies dysphagia, Denies sore throat and Denies throat swelling Cardiovascular Cardiovascular: Denies chest pain and Denies dyspnea Respiratory Respiratory: Denies chest congestion, Denies cough and Denies dyspnea Gastrointestinal Gastrointestingal: Denies abdominal pain, constipation, diarrhea, dysphagia, nausea or vomiting Genitourinary Female Genitourinary: Reports as per HPI, Reports dysuria, Reports urinary frequency, Denies urinary incontinence and Reports urinary hesitancy Musculoskeletal Musculoskeletal: Denies arthralgias and Reports back pain Integumentary/Breasts Skin/Breast: Denies rash Neurologic Neurologic: Denies paresthesias Allergic/Immunologic Allergic/Immunologic: Denies throat swelling Physical Exam General General appearance: alert and in no apparent distress Head Head exam: atraumatic and normocephalic Eye Eye exam: Present normal appearance, PERRL and EOMI ENT ENT exam: Present normal exam, mucous membranes moist, TM's normal bilaterally and normal external ear exam Neck Neck exam: Present normal inspection, full ROM and trachea midline; Absent tenderness, meningismus or lymphadenopathy Chest Chest inspection: Present normal inspection and symmetric chest wall rise; Absent tenderness Respiratory Respiratory exam: Present normal lung sounds bilaterally; Absent respiratory distress, wheezes or stridor Cardiovascular Cardiovascular exam: Present regular rate, normal rhythm and normal heart sounds Abdominal Exam Abdominal exam: Present soft and normal bowel sounds; Absent distention, tenderness, guarding, rebound, rigidity, incision, psoas sign, obturator sign, heel tap sign, Godwin's sign, Rovsing's sign or tenderness at McBurney's Point Extremities Exam Extremities exam: Present normal inspection, full ROM and normal capillary refill; Absent tenderness, edema, joint swelling, calf tenderness or cyanosis Back Exam Back exam: Present normal inspection and full ROM; Absent tenderness, CVA tenderness (R) or CVA tenderness (L) Neurological Exam Neurological exam: Present alert, oriented X3 and normal gait Psychiatric Psychiatric exam: Present normal affect and normal mood Skin Skin exam: Present warm, dry, intact and normal color Lymphatic Lymphatic Findings: no adenopathy Medical Decision Making Medical Records Medical records reviewed: No I reviewed the patient's medical records. Jas Inquiry Pt receiving controlled substance: No Lab Data Lab results reviewed: Yes I reviewed the patient's lab results.
[2023-11-30 19:56] VITALS: BP 126/68; PULSE 97; RESP 16; TEMP 37; O2SAT 98; BMI 31.5
[2023-11-30 19:58] LABS: Color,Urine Yellow (Yellow)
[2023-11-30 19:59] LABS: Apearance,Urine Cloudy (Clear); Bilirubin,Urine Negative (Negative); Blood, Urine 4+ (Negative); Glucose,Urine (UA) Negative (Negative); Ketones,Urine Negative (Negative); Protein,Urine 1+ (Negative); UTC Leukocyte Esterase,Urine 3+ (Negative); UTC Nitrate,Urine Positive (Negative); Urobilinogen,Urine 0.2 EU/dl (0.2)
[2023-11-30] MEDS: NITROFURANTOIN 100MG CAPSULE 100 MG PO (20:08)
[2023-11-30 20:15] VITALS: BP 126/68; PULSE 97; RESP 16; TEMP 37; O2SAT 98
== END 2023-11-30 20:15 | disposition home or self-care (01) ==
PROVIDERS: Emergency Provider Nurse Practitioner Family; PCP Family Medicine
DX: N39.0 Urinary tract infection, site not specified (principal); R10.30 Lower abdominal pain, unspecified
CPT/HCPCS: 81003; 99212; 99214; G0463

== ENCOUNTER 2024-05-09 11:32 | Emergency (ER) | payer SELFPAY ==
[2024-05-09 11:50] VITALS: BP 123/75; PULSE 64; RESP 18; TEMP 36.9; O2SAT 100; BMI 30.5
--- NOTE | 2024-05-09 12:10 | EXP.UTC ---
Discharge Plan Disposition Patient Disposition: Home, Self-Care Condition: Good Prescriptions Prescriptions: New prednisone 10 mg tablet 10 mg PO BID 3 Days Qty: 6 0RF azithromycin [Zithromax] 250 mg tablet 250 mg PO UD DOSE PK Qty: 6 0RF Rx Instructions: Take two (2) tablets today, then one (1) tablet days #2 thru #5 [id number]-[id number] [Bromfed DM] 2-30-10 mg/5 mL Syrup 5 ml PO Q6H PRN (Reason: Cough) Qty: 240 0RF Referrals Follow up/Referrals: Namrata Lopez MD [Primary Care Provider] - See instructions Activity Restrictions/Add. Instructions Additional Instructions/Restrictions: Drink plenty of fluids. Take tylenol or ibuprofen for pain or fever. Take the medications as directed. Follow up with your regular doctor. GO TO THE ER FOR ANY WORSENING SYMPTOMS Clinical Impressions Clinical Impression: Pharyngitis Stand Alone Forms Stand Alone Forms: Work/School Release Instructions Patient Instructions: Sore Throat Print Language Print Language: Afghan Discharge ED Provider: Tu Walsh [facility] General Stated complaint: sore throat, cough Mode of Arrival: Ambulatory Source of Information: Patient Limitations: No Limitations Time Seen by Provider: 05/09/24 12:10 Description of Symptoms (Recalled from Triage Doc. by RN): PATIENT C/O SORE THROAT AND COUGH HEENT Symptoms (Recalled from RN notes): Yes Resp Symptoms (Recalled from RN notes): Yes Skin Symptoms (Recalled from RN notes): No MS Symptoms (Recalled from RN notes): No Functional Status (Recalled from RN notes): WNL History of Present Illness Provider Complaint: She states that for the past 3 days she has had sore throat, ear pain and malaise. Related Data Previous Rx's ?Medication ?Instructions ?Recorded azithromycin 250 mg tablet 250 mg PO UD DOSE PK #6 tabs 05/09/24 (Zithromax) rvaanenyhxjecfu-hpoewhvpevijwvd-UG 5 ml PO Q6H PRN Cough #240 mL 05/09/24 2 mg-30 mg-10 mg/5 mL oral syrup (Bromfed DM) prednisone 10 mg tablet 10 mg PO BID 3 days #6 tabs 05/09/24 Allergies Allergy/AdvReac Type Severity Reaction Status Date / Time risperidone (From RISPERDAL) Allergy Mild -- Verified 03/25/23 12:05 Worker's Comp Is this a Worker's Comp case?: No [facility] Disclaimer: The information contained in this section may have been updated after the patient was seen, as this information can be updated by other users. Medical History (Updated 05/09/24 @ 12:41 by Tu Walsh APRN) Urinary tract infection Migraine Surgical History History of tubal ligation History of tonsillectomy Social History Smoking Status: Never smoker second hand exposure: No alcohol intake: never substance use type: denies use current occupational status: unemployed Travel in the last 8 weeks: None household members: spouse housing: house current occupational exposures/hazards: No caffeine: No Have you lived/traveled outside US in past 30 days?: No Contact w/someone who lives/traveled outside US past 30 days?: No Exposure to someone with infectious disease in past 14 days?: No Do you have a fever (greater than 100.4 F or 38 C)?: No Have you tested positive for COVID-19: No Exposed to someone with COVID-19 in past 14 days?: No Do you have a sore throat?: Yes Do you have a cough?: Yes Do you have any weakness?: No Do you have any diarrhea?: No Are you experiencing any unusual bleeding?: No Do you have any muscle aches/pain?: No Do you have any abdominal pain?: No Are you experiencing loss of taste or smell?: No ROS Obtained: Yes All systems reviewed & no additional complaints except as documented Constitutional Constitutional: Reports chills and Reports fever(s) Eyes Eyes: Denies eye discharge ENT Ears, Nose, Mouth, and Throat: Reports as per HPI Cardiovascular Cardiovascular: Denies chest pain Respiratory Respiratory: Denies chest congestion and Reports cough Gastrointestinal Gastrointestingal: Reports nausea; Denies abdominal pain, constipation, cramping, diarrhea or vomiting Musculoskeletal Musculoskeletal: Denies arthralgias Integumentary/Breasts Skin/Breast: Denies rash Neurologic Neurologic: Denies paresthesias Physical Exam General General appearance: alert and in no apparent distress Head Head exam: atraumatic, normocephalic and normal inspection Eye Eye exam: Present normal appearance, PERRL and EOMI ENT ENT exam: Present mucous membranes moist and normal external ear exam Expanded ENT Exam TM/Canal exam: Bilateral TM: erythema and bulging Nose exam: Absent sinus tenderness Mouth exam: Present normal external inspection; Absent drooling Teeth exam: Present normal inspection Throat exam: Present tonsillar erythema, tonsillomegaly and tonsillar exudate Neck Neck exam: Present normal inspection, full ROM and trachea midline; Absent tenderness, meningismus or lymphadenopathy Chest Chest inspection: Present normal inspection and symmetric chest wall rise; Absent tenderness Respiratory Respiratory exam: Present normal lung sounds bilaterally; Absent respiratory distress, wheezes or stridor Cardiovascular Cardiovascular exam: Present regular rate and normal rhythm; Absent systolic murmur or diastolic murmur Abdominal Exam Abdominal exam: Present soft and normal bowel sounds; Absent distention, tenderness, guarding, rebound or rigidity Extremities Exam Extremities exam: Present normal inspection and normal capillary refill; Absent calf tenderness Back Exam Back exam: Present normal inspection and full ROM; Absent tenderness, CVA tenderness (R) or CVA tenderness (L) Neurological Exam Neurological exam: Present alert, oriented X3 and CN II-XII intact Psychiatric Psychiatric exam: Present normal affect and normal mood Skin Skin exam: Present warm, dry, intact and normal color Medical Decision Making Medical Records Medical records reviewed: No I reviewed the patient's medical records. Screening: Per USPSTF and CDC recommendations, given the prevalence of disease in our region, it is our hospital?s policy to screen for HIV and viral Hepatitis for all patients aged 18 and over and those with ongoing risk factors. Jas Inquiry Pt receiving controlled substance: No Vital Signs: 05/09/24 11:50 Temperature 98.5 F Temperature Source Oral Pulse Rate [Left Brachial] 64 Respiratory Rate 18 Blood Pressure [Left Arm] 123/75 Blood Pressure Mean [Left Arm] 91 Blood Pressure Source [Left Arm] Automatic Cuff Blood Pressure Position [Left Arm] Sitting 02 Sat by Pulse Oximetry 100 Oxygen Delivery Method Room Air Lab Data Lab results reviewed: Yes I reviewed the patient's lab results.
[2024-05-09 12:26] LABS: UTC Strep Screen (Rapid) Negative (Negative)
[2024-05-09 12:44] VITALS: BP 123/75; PULSE 64; RESP 18; TEMP 36.9; O2SAT 100
== END 2024-05-09 12:45 | disposition home or self-care (01) ==
PROVIDERS: Emergency Provider Nurse Practitioner Family; PCP Family Medicine
DX: J02.9 Acute pharyngitis, unspecified (principal)
CPT/HCPCS: 87880; 99213; G0381

== ENCOUNTER 2024-11-04 13:37 | Outpatient (CLI) | payer SELFPAY ==
--- NOTE | 2024-11-04 13:40 | XR_ITS ---
FINAL REPORT CLINICAL HISTORY: ankle pain COMPARISON: 08/05/2023 FINDINGS: Four views of the right ankle show posttraumatic deformities of the distal tibia and fibula. There are healed fractures noted. Degenerative changes of the lateral ankle mortise. IMPRESSION: Chronic posttraumatic and degenerative changes without acute bony abnormality. Reviewed, Interpreted and Dictated by Christopher Barnes MD Transcribed by Jo-Ann Hunt [facility] and [facility]
--- OUTSIDE RECORDS SUMMARY | 2024-11-04 13:55 | XMS_ITS | Clinical Summary ---
Author Organization [facility] Address [address] [place] [address] Care Team Providers Care Medical Program Specialist Name Role Phone Pcp, No Primary Care Provider Unavailabl e Allergies Active Allergy Reactions Criticality Noted Date Comments Risperidone Anaphylaxis High 02/28/2019 Medications oxyCODONE (Roxicodone) 5 MG immediate release tablet TAKE 1 TABLET BY MOUTH EVERY 8 HOURS NEEDED FOR PAIN (SCALE SCORE 7-10) 4 Active methocarbamol (Robaxin) 500 MG tablet Take 1 tablet (500 mg) by mouth 3 (three) times a day if needed for muscle spasms for up to 7 days. 21 tablet 4 Active naloxone (Narcan) 4 mg/0.1 mL nasal spray 1. Give 1 spray in nostril for no/slow breathing or cannot wake after opioid use 2. Call 911 3. Repeat in other nostril if symptoms continue 1 each 4 Active Social History Tobacco Use Types Packs/Day Years Used Date Smoking Tobacco: Never Smokeless Tobacco: Never Tobacco Cessation:Counseling Given: Not Answered Alcohol Use Standard Drinks/Week Comments Never 0 (1 standard drink = 0.6 oz pur e alcohol) PHQ-2 Answer Date Recorded Patient Health Questionnaire-2 Score 0 08/08/2023 Comments No Sex and Gender Information Value Date Recorded Sex Assigned at Not on file Legal Sex Female 7:38 PM EDT Gender Identity Not on file Sexual Orientation Not on file Last Filed Vital Signs Vital Sign Reading Time Taken Comments Blood Pressure 124/85 09/21/2023 10:27 AM EDT Pulse 82 09/21/2023 10:27 AM EDT Temperature 36.9 C (98.4 F) 09/21/2023 10:27 AM EDT Respiratory Rate - - Oxygen Saturation 100% 09/21/2023 10:27 AM EDT Inhaled Oxygen Concentration - - Weight 79.4 kg (175 lb) 09/21/2023 10:27 AM EDT Height 156.2 cm (5' 1.5 ) 09/21/2023 10:27 AM ED T Body Mass Index 32.53 09/21/2023 10:27 AM EDT Plan of Treatment Health Maintenance Due Date Last Done Comments [facility]-HIV Screening 1991 [facility]-Hepatitis C Screening 1991 [facility]-Infant/Child/Adol SDOH Screenings 1991 [facility]-Varicella Vaccines (1 of 2 - 13+ 2-dose series) 2004 HPV Vaccines (1 - 3-dose series) 2006 [facility]- SDOH Screenings 2009 [facility]-Adult SDOH Screenings 2009 [facility]-DTaP,Tdap,and Td Vaccine s (1 - Tdap) 2010 [facility]-Hepatitis B Vaccines (1 of 3 - 19+ 3-dose series) 2010 [facility]-Pap Smear 2012 [facility]-Cervical Cancer Screening 2021 [facility]-HPV/Cotest 2021 [facility]-LQWXW-29 Vaccine (1 - season) 2023 [facility]-Depression Screening 08/07/2024 08/08/2023 [facility]-Influenza Vaccine (#1) 2024 01/24/2019 [facility]-Zoster Vaccines (1 of 2) 2041 [facility]-Obesity Intervention Completed 024, 08/22/2023, 08/08/2023 [facility]-HIB Vaccines Aged Out No longer e ligible based on patient's age to complete this topic [facility]-Hepatitis A Vaccines Aged Out No longer eligible based on patient's age to complete this topic [facility]-IPV Vaccines Aged Out No longer e ligible based on patient's age to complete this topic [facility]-Pneumococcal Vaccine: Pediatrics (0 to 5 Years) and At-Risk Patients (6 to 49 Years) Aged Out No longer eligible b ased on patient's age to complete this topic [facility]-Rotavirus Vaccines Aged Out No lo nger eligible based on patient's age to complete this topic Care Teams Medical Program Specialist Relationship Specialty Start Date End Date Pcp, No [address] [place] [address] PCP - General Family Medicine 08/06/23
== END 2024-11-04 23:59 | disposition home or self-care (01) ==
LOC: RAD 13:38
PROVIDERS: PCP Nurse Practitioner Family; Visit Provider Nurse Practitioner
DX: M19.171 Post-traumatic osteoarthritis, right ankle and foot (principal)
CPT/HCPCS: 73610